=== PATIENT | male | born 1960 | race Caucasian/White ===

== ENCOUNTER 2020-05-24 17:09 | Inpatient (IN) ==
[2020-05-24] MEDS ORDERED: NS 0.9% 1000 ml BAG 1,000 ML IV ONE ×2 (17:25→18:05)
[2020-05-24 17:52] LABS: Activated Partial Thrombo Time 24.8 seconds (26.0-38.0); INR 1.05 (0.82-1.09)
[2020-05-24 17:56] LABS: ABS Lymphocytes 0.6 10^3/ul (1.0-4.8); ABS Monocytes 0.4 10^3/ul (0-0.8); ABS Neutrophils 2.8 10^3/ul (1.5-7.7); Eosinophil % 1.1 %; Hematocrit 38 % (42-52); Hemoglobin 13.4 g/dL (14.0-18.0); Lymphocyte % 15.3 %; Mean Corpuscular HGB Conc 35 g/dL (31-36); Mean Corpuscular Hemoglobin 39 pg (27-31); Mean Corpuscular Volume 111 fL (80-94); Mean Platelet Volume 8.4 fL (7.4-10.4); Nucleated Red Blood Cells % 0.1; Platelet Count 147 10^3/uL (150-450); Red Blood Count 3.41 10^6 /uL (4.18-5.48); Red Cell Distribution Width 17 % (10-15); White Blood Count 3.8 10^3/uL (3.5-10.8)
[2020-05-24 18:07] LABS: ALT 96 U/L (7-52); AST 112 U/L (13-39); Albumin 3.9 g/dL (3.2-5.2); Alkaline Phosphatase 42 U/L (34-104); Anion Gap 11 mmol/L (2-11); BUN/Creatinine Ratio 15.9 (8-20); Blood Urea Nitrogen 22 mg/dL (6-24); CO2 Carbon Dioxide 24 mmol/L (22-32); Calcium 9.4 mg/dL (8.6-10.3); Chloride 100 mmol/L (101-111); Cholesterol 155 mg/dL; EGFR African American 63.2 (>60); EGFR Non-African American 52.2 (>60); Glucose 99 mg/dL (70-100); HDL Cholesterol 35.1 mg/dL; LDL Cholesterol 97 mg/dL; Potassium 3.3 mmol/L (3.5-5.0); Sodium 135 mmol/L (135-145); Triglycerides 114 mg/dL
[2020-05-24] MEDS ORDERED: Iodixanol (CONTRAST) 320 MG/ML 100 ML SDV IV ONE (18:12)
[2020-05-24 18:57] LABS: Albumin/Globulin Ratio 1.2 (1-3); Globulin 3.2 g/dL (2-4); Total Protein 7.1 g/dL (6.4-8.9)
[2020-05-24 20:36] LABS: Urine Appearance Clear; Urine Bilirubin Negative (Negative); Urine Blood Negative (Negative); Urine Color Yellow; Urine Glucose Negative (Negative); Urine Ketones Trace (Negative); Urine Nitrite Negative (Negative); Urine Protein Negative (Negative); Urine Specific Gravity 1.043 (1.010-1.030); Urine Urobilinogen Negative (Negative)
[2020-05-24] MEDS ORDERED: Ondansetron 4 mg VIAL 2 MG/ML 2 ml VIAL IV PRN (20:49)
[2020-05-24] MEDS ORDERED: Potassium Chlor 20 meq TAB.ER PO ONE (21:00)
[2020-05-24] MEDS ORDERED: Albuterol 2.5mg/3 ml (0.083%) NEB.SOLN INH PRN (21:27)
[2020-05-24] MEDS ORDERED: NS 0.9% 1000 ml BAG 1,000 ML IV SCH (21:30)
[2020-05-24 21:50] LABS: Alcohol, S < 10 mg/dL (<10)
[2020-05-24 21:55] LABS: Magnesium 1.5 mg/dL (1.9-2.7)
[2020-05-24 22:16] LABS: Vitamin B12 613 pg/mL (180-914)
[2020-05-25] MEDS ORDERED: Magnesium Sulfate 2 gm BAG 2 GM/50 ML BAG IVPB ONE (00:40)
[2020-05-25] MEDS: Nystatin TOP POWDER 15 GM BTL TOPICAL SCH ×3 (02:15→13:36)
[2020-05-25 06:05] LABS: ABS Basophils 0.1 10^3/ul (0-0.2); ABS Eosinophils 0.1 10^3/ul (0-0.6); ABS Lymphocytes 0.6 10^3/ul (1.0-4.8); ABS Monocytes 0.3 10^3/ul (0-0.8); ABS Neutrophils 2.3 10^3/ul (1.5-7.7); Eosinophil % 2.2 %; Hematocrit 35 % (42-52); Hemoglobin 12.4 g/dL (14.0-18.0); Lymphocyte % 19.4 %; Mean Corpuscular HGB Conc 35 g/dL (31-36); Mean Corpuscular Hemoglobin 39 pg (27-31); Mean Corpuscular Volume 111 fL (80-94); Mean Platelet Volume 7.6 fL (7.4-10.4); Nucleated Red Blood Cells % 0.2; Platelet Count 138 10^3/uL (150-450); Red Blood Count 3.19 10^6 /uL (4.18-5.48); Red Cell Distribution Width 16 % (10-15); White Blood Count 3.3 10^3/uL (3.5-10.8)
[2020-05-25 06:19] LABS: Albumin 3.6 g/dL (3.2-5.2); Albumin/Globulin Ratio 1.2 (1-3); Calcium 8.7 mg/dL (8.6-10.3); EGFR African American 83.8 (>60); EGFR Non-African American 69.3 (>60); Globulin 3.1 g/dL (2-4); HDL Cholesterol 32.6 mg/dL; Indirect Bilirubin 0.6 mg/dL (0.3-1.0); Potassium 3.9 mmol/L (3.5-5.0); Total Protein 6.7 g/dL (6.4-8.9)
[2020-05-25 07:19] LABS: INR 1.1 (0.82-1.09)
[2020-05-25] MEDS ORDERED: Perflutren Lipid Microsphere 3 ML VIAL ONE (08:43)
[2020-05-25 12:23] VITALS: BP 116/68
[2020-05-25 14:18] LABS: Folate 6.73 ng/mL (>3.99)
== END 2020-05-25 15:45 | disposition home health service (06) | DRG 45 ==
LOC: ED 17:09 → MEDTELE 21:24
PROVIDERS: ADMIT Nurse Practitioner Family; ATTEND Internal Medicine

== ENCOUNTER 2020-09-15 23:14 | Inpatient (IN) ==
[2020-09-15] MEDS ORDERED: Lorazepam PYXIS KEY ONE (23:22)
[2020-09-15] MEDS ORDERED: NS 0.9% 1000 ml BAG 1,000 ML IV ONE (23:23)
[2020-09-15] MEDS ORDERED: LORazepam 2 mg VIAL 1 ml ONE (23:23)
[2020-09-15] MEDS ORDERED: levETIRAcetam 1000MG IVPREMIX 1,000 MG/100 ML BAG IVPB ONE (23:24)
[2020-09-15] MEDS ORDERED: Prothrombin Complex Conc. DOSE = Units Factor IX (nine) IV SLOW PU ONE (23:26)
[2020-09-15 23:40] LABS: ABS Lymphocytes 1.1 10^3/ul (1.0-4.8); ABS Monocytes 0.6 10^3/ul (0-0.8); ABS Neutrophils 9.5 10^3/ul (1.5-7.7); Hematocrit 25 % (42-52); Hemoglobin 8.3 g/dL (14.0-18.0); Lymphocyte % 10.2 %; Mean Corpuscular HGB Conc 34 g/dL (31-36); Mean Corpuscular Hemoglobin 37 pg (27-31); Mean Corpuscular Volume 109 fL (80-94); Mean Platelet Volume 8.1 fL (7.4-10.4); Nucleated Red Blood Cells % 0.2; Platelet Count 176 10^3/uL (150-450); Red Blood Count 2.28 10^6 /uL (4.18-5.48); Red Cell Distribution Width 17 % (10-15); White Blood Count 11.3 10^3/uL (3.5-10.8)
[2020-09-15 23:46] LABS: INR 1.19 (0.82-1.09)
[2020-09-15 23:54] LABS: ALT 17 U/L (7-52); AST 21 U/L (13-39); Albumin 3.1 g/dL (3.2-5.2); Albumin/Globulin Ratio 1.5 (1-3); Alkaline Phosphatase 27 U/L (34-104); Anion Gap 16 mmol/L (2-11); BUN/Creatinine Ratio 32.2 (8-20); Blood Urea Nitrogen 47 mg/dL (6-24); CO2 Carbon Dioxide 18 mmol/L (22-32); Calcium 8.7 mg/dL (8.6-10.3); Chloride 98 mmol/L (101-111); EGFR African American 59.2 (>60); EGFR Non-African American 48.9 (>60); Globulin 2.1 g/dL (2-4); Glucose 205 mg/dL (70-100); Potassium 4.5 mmol/L (3.5-5.0); Sodium 132 mmol/L (135-145); Total Protein 5.2 g/dL (6.4-8.9)
[2020-09-15] MEDS ORDERED: LORazepam 2 mg VIAL 1 ml IV PUSH ONE (23:54)
[2020-09-15] MEDS ORDERED: Lorazepam PYXIS KEY PRN (23:54)
[2020-09-16] MEDS ORDERED: Digoxin IV 0.5 MG/2 ML AMP (0.25 MG/ML) IV SLOW PU ONE (00:28)
[2020-09-16] MEDS ORDERED: Pantoprazole 80 mg in NS BAG 80 MG/250 ML BAG IV ONE ×2 (00:54→00:56)
[2020-09-16] MEDS ORDERED: Pantoprazole 80 mg in NS BAG 80 MG/250 ML BAG IV SCH (01:00)
[2020-09-16] MEDS ORDERED: Pantoprazole VIAL 40 MG VIAL IV ONE (01:05)
[2020-09-16] MEDS ORDERED: CALCIUM GLUCONATE 1GM/50ML NS 1 GM/50 ML BAG IV ONE (01:16)
[2020-09-16 01:18] LABS: Troponin I 0.01 ng/mL (<0.03)
[2020-09-16] MEDS: CALCIUM GLUCONATE 1GM/50ML NS 1 GM/50 ML BAG IV ONE ×2 (01:34→01:43)
[2020-09-16] MEDS: Pantoprazole 80 mg in NS BAG 80 MG/250 ML BAG IV SCH ×3 (01:40→20:48)
[2020-09-16] MEDS ORDERED: Lactated Ringers 1000 ml BAG 1,000 ML IV SCH ×2 (02:00→18:00)
[2020-09-16] MEDS ORDERED: Diltiazem (ADVAN VIAL) 100 MG/100 ML ADDV.BAG IV SCH (02:00)
[2020-09-16] MEDS ORDERED: Thiamine 100 MG/ML 2 ml VIAL (200 mg) IM ONE (02:18)
[2020-09-16] MEDS ORDERED: Lorazepam PYXIS KEY PRN ×2 (02:25→07:08)
[2020-09-16 02:29] LABS: Alcohol, S < 10 mg/dL (<10)
[2020-09-16 02:47] LABS: Hematocrit 24 % (42-52); Hemoglobin 8.4 g/dL (14.0-18.0)
[2020-09-16] MEDS ORDERED: LORazepam 2 mg VIAL 1 ml IV PUSH SCH (03:15)
[2020-09-16 03:22] LABS: Urine Appearance Clear; Urine Bilirubin Negative (Negative); Urine Blood Negative (Negative); Urine Color Yellow; Urine Glucose 1+(50 mg/dL) (Negative); Urine Ketones Negative (Negative); Urine Nitrite Negative (Negative); Urine Protein Negative (Negative); Urine Specific Gravity 1.015 (1.010-1.030); Urine Urobilinogen Negative (Negative)
[2020-09-16 03:32] LABS: Urine Benzodiazepine Screen None Detected (None Detect); Urine Cannabinoids Screen None Detected (None Detect); Urine Opiates Screen Presumptive Positive (None Detect)
[2020-09-16 03:37] LABS: Troponin I 0.01 ng/mL (<0.03)
[2020-09-16] MEDS ORDERED: Metoprolol Tartrate 5 mg VIAL 5 ml VIAL (1 mg/ml) IV PRN (03:49)
[2020-09-16] MEDS: Multivitamins/Minerals TAB PO SCH ×2 (03:49→08:32)
[2020-09-16] MEDS ORDERED: Dexmedetomidine 1,000 MCG in NS 0.9% 250 ml 240 ML IV SCH (05:00)
[2020-09-16] MEDS: LORazepam 2 mg VIAL 1 ml IV PUSH SCH ×2 (05:52→09:20)
[2020-09-16 06:03] LABS: Hematocrit 22 % (42-52); Hemoglobin 7.7 g/dL (14.0-18.0)
[2020-09-16 06:13] LABS: Albumin 2.6 g/dL (3.2-5.2); Albumin/Globulin Ratio 1.5 (1-3); BUN/Creatinine Ratio 34.6 (8-20); Calcium 7.5 mg/dL (8.6-10.3); EGFR African American 84.7 (>60); Globulin 1.7 g/dL (2-4); Potassium 4.1 mmol/L (3.5-5.0); Total Bilirubin 0.7 mg/dL (0.2-1.0); Total Protein 4.3 g/dL (6.4-8.9)
[2020-09-16 06:23] LABS: Troponin I 0.01 ng/mL (<0.03)
[2020-09-16] MEDS ORDERED: LORazepam 2 mg VIAL 1 ml IV PUSH ONE (07:08)
[2020-09-16] MEDS ORDERED: Lorazepam PYXIS KEY ONE (07:09)
[2020-09-16] MEDS ORDERED: LORazepam 2 mg VIAL 1 ml ONE (07:09)
[2020-09-16] MEDS ORDERED: Succinylcholine 200 mg VIAL 20 mg/ml 10 ml VIAL (200 mg) ONE (07:33)
[2020-09-16] MEDS ORDERED: Propofol 10 MG/ML 20 ML BTL ONE (07:39)
[2020-09-16] MEDS ORDERED: Propofol 10 mg/ml 100 ML BTL 100 ML IV SCH (08:00)
[2020-09-16] MEDS: Propofol* 20 ML VIAL - FOR IV LINE PRIMING ONLY SCH ×2 (08:32→21:24)
[2020-09-16 09:05] LABS: Urine Appearance Clear; Urine Bilirubin Negative (Negative); Urine Blood 1+ (Negative); Urine Color Yellow; Urine Glucose 1+(50 mg/dL) (Negative); Urine Ketones Negative (Negative); Urine Nitrite Negative (Negative); Urine Protein Negative (Negative); Urine Specific Gravity 1.015 (1.010-1.030); Urine Urobilinogen Negative (Negative)
[2020-09-16 09:09] LABS: Urine Bacteria Absent (Absent); Urine Red Blood Cell Trace(0-2/hpf) (Absent); Urine White Blood Cell Trace(0-5/hpf) (Absent)
[2020-09-16] MEDS: levETIRAcetam 1000MG IVPREMIX 1,000 MG/100 ML BAG IVPB SCH ×2 (09:41→21:26)
[2020-09-16] MEDS: Midazolam 50 MG VIAL IV DRIP 50 ML IV SCH ×2 (09:43→16:25)
[2020-09-16 10:13] LABS: Magnesium 1.6 mg/dL (1.9-2.7); Phosphorus 1.8 mg/dL (2.5-5.0)
[2020-09-16] MEDS ORDERED: Midazolam 5 mg/5 ml VIAL 1 mg/ml 5 ml VIAL (5 mg) ONE (10:37)
[2020-09-16] MEDS ORDERED: Midazolam 5 mg/5 ml VIAL 1 mg/ml 5 ml VIAL (5 mg) IV SLOW PU ONE (10:45)
[2020-09-16 17:07] LABS: Hematocrit 23 % (42-52); Hemoglobin 7.7 g/dL (14.0-18.0)
[2020-09-16] MEDS ORDERED: fentaNYL 250 mcg/5 ml 50 MCG/ML 5 ml VIAL (250 MCG) ONE (19:35)
[2020-09-16] MEDS ORDERED: fentaNYL 100 mcg/2 ml 50 MCG/ML VIAL IV SLOW PU ONE (22:00)
[2020-09-16] MEDS: Chlorhexidine MOUTHWASH 0.12% 15 ML UDC TOPICAL SCH (23:56)
[2020-09-17] MEDS: Midazolam 50 MG VIAL IV DRIP 50 ML IV SCH ×3 (00:04→14:54)
[2020-09-17] MEDS: Lactated Ringers 1000 ml BAG 1,000 ML IV SCH ×3 (01:55→20:48)
[2020-09-17] MEDS ORDERED: Piperacillin/Tazobac ADVAN 3.375 GM in NS 0.9% 100 ml BAG 100 ML IV ONE (01:56)
[2020-09-17] MEDS ORDERED: Zosyn per Pharmacy NOTE FOLLOW UP SCH (02:00)
[2020-09-17] MEDS ORDERED: Norepinephrine 16MCG/ML IVPRE 4,000 MCG/250 ML BAG IV ONE (03:39)
[2020-09-17] MEDS: Norepinephrine 16MCG/ML IVPRE 4,000 MCG/250 ML BAG IV SCH ×2 (03:40→10:12)
[2020-09-17] MEDS: Chlorhexidine MOUTHWASH 0.12% 15 ML UDC TOPICAL SCH ×5 (04:31→20:49)
[2020-09-17 05:24] LABS: ABS Eosinophils 0.1 10^3/ul (0-0.6); ABS Lymphocytes 0.4 10^3/ul (1.0-4.8); ABS Monocytes 0.2 10^3/ul (0-0.8); ABS Neutrophils 5.7 10^3/ul (1.5-7.7); Eosinophil % 0.9 %; Hematocrit 23 % (42-52); Hemoglobin 7.6 g/dL (14.0-18.0); Lymphocyte % 6.7 %; Mean Corpuscular HGB Conc 34 g/dL (31-36); Mean Corpuscular Hemoglobin 35 pg (27-31); Mean Corpuscular Volume 103 fL (80-94); Mean Platelet Volume 8.7 fL (7.4-10.4); Platelet Count 96 10^3/uL (150-450); Red Blood Count 2.18 10^6 /uL (4.18-5.48); Red Cell Distribution Width 20 % (10-15); White Blood Count 6.4 10^3/uL (3.5-10.8)
[2020-09-17 05:30] LABS: ALT 12 U/L (7-52); Albumin 2.6 g/dL (3.2-5.2); Albumin/Globulin Ratio 1.4 (1-3); Alkaline Phosphatase 24 U/L (34-104); BUN/Creatinine Ratio 16.7 (8-20); Blood Urea Nitrogen 17 mg/dL (6-24); CO2 Carbon Dioxide 22 mmol/L (22-32); Calcium 7.3 mg/dL (8.6-10.3); Chloride 107 mmol/L (101-111); EGFR African American 89.5 (>60); Globulin 1.9 g/dL (2-4); Glucose 101 mg/dL (70-100); Magnesium 1.5 mg/dL (1.9-2.7); Phosphorus 1.9 mg/dL (2.5-5.0); Sodium 133 mmol/L (135-145); Total Protein 4.5 g/dL (6.4-8.9)
[2020-09-17 05:31] LABS: Anion Gap 4 mmol/L (2-11)
[2020-09-17] MEDS: ZOSYN 3.375 GM Q8H per EXTENDED INFUSION IV SCH ×3 (05:35→22:14)
[2020-09-17] MEDS: Multivitamins/Minerals TAB PO SCH (07:43)
[2020-09-17] MEDS: levETIRAcetam 1000MG IVPREMIX 1,000 MG/100 ML BAG IVPB SCH ×2 (07:54→20:49)
[2020-09-17] MEDS ORDERED: Magnesium Sulf 4 GM/100 ML IV 4,000 MG/100 ML BAG IVPB ONE (09:34)
[2020-09-17] MEDS ORDERED: Lorazepam PYXIS KEY ONE ×2 (09:36→11:46)
[2020-09-17] MEDS ORDERED: LORazepam 2 mg VIAL 1 ml ONE ×2 (09:37→11:46)
[2020-09-17] MEDS ORDERED: Metoprolol Tartrate 5 mg VIAL 5 ml VIAL (1 mg/ml) IV PRN (10:51)
[2020-09-17] MEDS ORDERED: Lorazepam PYXIS KEY PRN (11:07)
[2020-09-17] MEDS ORDERED: LORazepam 2 mg VIAL 1 ml IV PUSH ONE (12:00)
[2020-09-17] MEDS: Pantoprazole 80 mg in NS BAG 80 MG/250 ML BAG IV SCH ×2 (13:33→23:15)
[2020-09-17] MEDS: Dexmedetomidine 1,000 MCG in NS 0.9% 250 ml 240 ML IV SCH (15:31)
[2020-09-18] MEDS: Chlorhexidine MOUTHWASH 0.12% 15 ML UDC TOPICAL SCH ×7 (00:21→23:49)
[2020-09-18] MEDS: Midazolam 50 MG VIAL IV DRIP 50 ML IV SCH ×2 (01:12→23:15)
[2020-09-18] MEDS ORDERED: fentaNYL 100 mcg/2 ml 50 MCG/ML VIAL IV SLOW PU ONE (02:40)
[2020-09-18] MEDS ORDERED: fentaNYL 250 mcg/5 ml 50 MCG/ML 5 ml VIAL (250 MCG) ONE (02:41)
[2020-09-18] MEDS: Lactated Ringers 1000 ml BAG 1,000 ML IV SCH (03:39)
[2020-09-18 04:22] LABS: ABS Eosinophils 0.1 10^3/ul (0-0.6); ABS Lymphocytes 0.2 10^3/ul (1.0-4.8); ABS Monocytes 0.1 10^3/ul (0-0.8); ABS Neutrophils 2.7 10^3/ul (1.5-7.7); Eosinophil % 1.7 %; Hematocrit 19 % (42-52); Hemoglobin 6.6 g/dL (14.0-18.0); Lymphocyte % 7.2 %; Mean Corpuscular HGB Conc 35 g/dL (31-36); Mean Corpuscular Hemoglobin 36 pg (27-31); Mean Corpuscular Volume 103 fL (80-94); Mean Platelet Volume 7.3 fL (7.4-10.4); Nucleated Red Blood Cells % 0.1; Platelet Count 85 10^3/uL (150-450); Red Blood Count 1.85 10^6 /uL (4.18-5.48); Red Cell Distribution Width 20 % (10-15); White Blood Count 3.1 10^3/uL (3.5-10.8)
[2020-09-18 04:40] LABS: BUN/Creatinine Ratio 11.2 (8-20); Calcium 6.8 mg/dL (8.6-10.3); EGFR African American 93.8 (>60); EGFR Non-African American 77.5 (>60); Potassium 3.4 mmol/L (3.5-5.0)
[2020-09-18] MEDS: ZOSYN 3.375 GM Q8H per EXTENDED INFUSION IV SCH ×3 (05:35→21:55)
[2020-09-18] MEDS: Pantoprazole 80 mg in NS BAG 80 MG/250 ML BAG IV SCH ×5 (05:44→23:51)
[2020-09-18] MEDS ORDERED: KCL 20 MEQ/100 ML IVPREMIX 20 MEQ/100 ML BAG IV ONE (05:55)
[2020-09-18] MEDS: Dexmedetomidine 1,000 MCG in NS 0.9% 250 ml 240 ML IV SCH ×2 (07:45→23:45)
[2020-09-18] MEDS: levETIRAcetam 1000MG IVPREMIX 1,000 MG/100 ML BAG IVPB SCH ×2 (07:48→19:13)
[2020-09-18] MEDS: Multivitamins/Minerals TAB PO SCH (09:13)
[2020-09-18 15:10] LABS: Hematocrit 24 % (42-52); Hemoglobin 8.2 g/dL (14.0-18.0)
[2020-09-18] MEDS: Norepinephrine 16MCG/ML IVPRE 4,000 MCG/250 ML BAG IV SCH (20:04)
[2020-09-19] MEDS: Midazolam 50 MG VIAL IV DRIP 50 ML IV SCH (03:10)
[2020-09-19] MEDS: Chlorhexidine MOUTHWASH 0.12% 15 ML UDC TOPICAL SCH ×6 (03:50→23:49)
[2020-09-19 03:58] LABS: ABS Eosinophils 0.1 10^3/ul (0-0.6); ABS Lymphocytes 0.5 10^3/ul (1.0-4.8); ABS Monocytes 0.3 10^3/ul (0-0.8); ABS Neutrophils 3.8 10^3/ul (1.5-7.7); Eosinophil % 1.3 %; Hematocrit 25 % (42-52); Hemoglobin 8.4 g/dL (14.0-18.0); Lymphocyte % 9.8 %; Mean Corpuscular HGB Conc 34 g/dL (31-36); Mean Corpuscular Hemoglobin 34 pg (27-31); Mean Corpuscular Volume 102 fL (80-94); Mean Platelet Volume 7.6 fL (7.4-10.4); Nucleated Red Blood Cells % 0.2; Platelet Count 124 10^3/uL (150-450); Red Blood Count 2.46 10^6 /uL (4.18-5.48); Red Cell Distribution Width 20 % (10-15); White Blood Count 4.6 10^3/uL (3.5-10.8)
[2020-09-19 04:14] LABS: BUN/Creatinine Ratio 9.7 (8-20); Calcium 7.2 mg/dL (8.6-10.3); EGFR African American 99.6 (>60); EGFR Non-African American 82.3 (>60); Magnesium 1.9 mg/dL (1.9-2.7); Phosphorus 1.7 mg/dL (2.5-5.0); Potassium 3.8 mmol/L (3.5-5.0)
[2020-09-19] MEDS: Norepinephrine 16MCG/ML IVPRE 4,000 MCG/250 ML BAG IV SCH ×3 (04:20→23:52)
[2020-09-19] MEDS: Pantoprazole 80 mg in NS BAG 80 MG/250 ML BAG IV SCH (05:08)
[2020-09-19] MEDS: ZOSYN 3.375 GM Q8H per EXTENDED INFUSION IV SCH ×3 (05:20→22:21)
[2020-09-19] MEDS ORDERED: Magnesium Sulfate 2 gm BAG 2 GM/50 ML BAG IVPB ONE (05:28)
[2020-09-19] MEDS ORDERED: Potassium Phosphate IV 15 MMOLE in NS 0.9% 250 ml 250 ML IVPB ONE (08:00)
[2020-09-19] MEDS: levETIRAcetam 1000MG IVPREMIX 1,000 MG/100 ML BAG IVPB SCH ×2 (08:12→19:09)
[2020-09-19] MEDS: Multivitamins/Minerals TAB PO SCH (08:12)
[2020-09-19] MEDS ORDERED: Thiamine 100 MG/ML 2 ml VIAL (200 mg) IV SCH (09:00)
[2020-09-19] MEDS: Pantoprazole VIAL 40 MG VIAL IV SCH ×2 (09:27→22:21)
[2020-09-19] MEDS: Thiamine IV 100 MG in NS 0.9% 50 ML Q24H IV SCH (09:32)
[2020-09-19] MEDS ORDERED: Succinylcholine 200 mg VIAL 20 mg/ml 10 ml VIAL (200 mg) ONE (16:11)
[2020-09-19] MEDS ORDERED: Midazolam 10 mg/10 ml VIAL 1 mg/ml 10 ml VIAL (10 mg) ONE (16:27)
[2020-09-19] MEDS ORDERED: Etomidate 40 mg/20 ml (2 MG/ML) 20 ml VIAL (40 mg) ONE (16:27)
[2020-09-19] MEDS ORDERED: Propofol 10 mg/ml 100 ML BTL 100 ML ONE (16:39)
[2020-09-19] MEDS ORDERED: Saline FLUSH-CENTRAL 10 ML SYRINGE CENT\\PICC SCH (18:00)
[2020-09-19] MEDS: Linezolid 600 MG IVPREMIX(*) 600 MG/300 ML BAG IVPB SCH (18:29)
[2020-09-19] MEDS: Propofol 10 mg/ml 100 ML BTL 100 ML IV SCH (21:33)
[2020-09-20] MEDS: Chlorhexidine MOUTHWASH 0.12% 15 ML UDC TOPICAL SCH ×5 (04:12→20:26)
[2020-09-20] MEDS: Linezolid 600 MG IVPREMIX(*) 600 MG/300 ML BAG IVPB SCH ×2 (06:02→18:08)
[2020-09-20 06:19] LABS: ABS Eosinophils 0.1 10^3/ul (0-0.6); ABS Lymphocytes 0.4 10^3/ul (1.0-4.8); ABS Monocytes 0.4 10^3/ul (0-0.8); ABS Neutrophils 2.8 10^3/ul (1.5-7.7); Eosinophil % 2.2 %; Hematocrit 23 % (42-52); Hemoglobin 7.9 g/dL (14.0-18.0); Lymphocyte % 11.2 %; Mean Corpuscular HGB Conc 35 g/dL (31-36); Mean Corpuscular Hemoglobin 35 pg (27-31); Mean Corpuscular Volume 100 fL (80-94); Mean Platelet Volume 7.3 fL (7.4-10.4); Nucleated Red Blood Cells % 0.4; Platelet Count 139 10^3/uL (150-450); Red Blood Count 2.27 10^6 /uL (4.18-5.48); Red Cell Distribution Width 20 % (10-15); White Blood Count 3.7 10^3/uL (3.5-10.8)
[2020-09-20 06:36] LABS: Albumin 2.3 g/dL (3.2-5.2); Albumin/Globulin Ratio 0.9 (1-3); BUN/Creatinine Ratio 5.6 (8-20); EGFR African American 104.8 (>60); EGFR Non-African American 86.6 (>60); Globulin 2.5 g/dL (2-4); Magnesium 1.9 mg/dL (1.9-2.7); Phosphorus 1.6 mg/dL (2.5-5.0); Potassium 3.4 mmol/L (3.5-5.0); Total Bilirubin 0.6 mg/dL (0.2-1.0); Total Protein 4.8 g/dL (6.4-8.9)
[2020-09-20] MEDS: ZOSYN 3.375 GM Q8H per EXTENDED INFUSION IV SCH ×3 (07:19→21:48)
[2020-09-20] MEDS: Multivitamins/Minerals TAB PO SCH (07:33)
[2020-09-20] MEDS: Pantoprazole VIAL 40 MG VIAL IV SCH ×2 (07:33→20:26)
[2020-09-20] MEDS: levETIRAcetam 1000MG IVPREMIX 1,000 MG/100 ML BAG IVPB SCH ×2 (07:33→20:26)
[2020-09-20] MEDS ORDERED: Potassium Phosphate IV 15 MMOLE in NS 0.9% 250 ml 250 ML IVPB ONE (07:38)
[2020-09-20] MEDS: Propofol 10 mg/ml 100 ML BTL 100 ML IV SCH ×3 (07:54→21:53)
[2020-09-20] MEDS: Thiamine IV 100 MG in NS 0.9% 50 ML Q24H IV SCH (08:56)
[2020-09-20] MEDS: KCL 20 MEQ/100 ML IVPREMIX 20 MEQ/100 ML BAG IV SCH ×2 (09:39→11:47)
[2020-09-20] MEDS: Norepinephrine 16MCG/ML IVPRE 4,000 MCG/250 ML BAG IV SCH (21:53)
[2020-09-21] MEDS: Chlorhexidine MOUTHWASH 0.12% 15 ML UDC TOPICAL SCH ×6 (00:18→19:25)
[2020-09-21] MEDS: Propofol 10 mg/ml 100 ML BTL 100 ML IV SCH ×4 (04:00→22:26)
[2020-09-21 04:26] LABS: ABS Eosinophils 0.1 10^3/ul (0-0.6); ABS Lymphocytes 0.3 10^3/ul (1.0-4.8); ABS Monocytes 0.2 10^3/ul (0-0.8); ABS Neutrophils 1.7 10^3/ul (1.5-7.7); Eosinophil % 2.9 %; Hematocrit 23 % (42-52); Hemoglobin 8.3 g/dL (14.0-18.0); Lymphocyte % 14.4 %; Mean Corpuscular HGB Conc 36 g/dL (31-36); Mean Corpuscular Hemoglobin 36 pg (27-31); Mean Corpuscular Volume 100 fL (80-94); Mean Platelet Volume 7.7 fL (7.4-10.4); Nucleated Red Blood Cells % 0.8; Platelet Count 150 10^3/uL (150-450); Red Blood Count 2.34 10^6 /uL (4.18-5.48); Red Cell Distribution Width 20 % (10-15); White Blood Count 2.4 10^3/uL (3.5-10.8)
[2020-09-21 04:41] LABS: Albumin 2.4 g/dL (3.2-5.2); Albumin/Globulin Ratio 0.9 (1-3); BUN/Creatinine Ratio 4.6 (8-20); Calcium 7.1 mg/dL (8.6-10.3); EGFR African American 107.6 (>60); EGFR Non-African American 88.9 (>60); Globulin 2.6 g/dL (2-4); Magnesium 1.7 mg/dL (1.9-2.7); Phosphorus 1.9 mg/dL (2.5-5.0); Potassium 4.2 mmol/L (3.5-5.0); Total Bilirubin 0.5 mg/dL (0.2-1.0)
[2020-09-21] MEDS: Linezolid 600 MG IVPREMIX(*) 600 MG/300 ML BAG IVPB SCH (05:18)
[2020-09-21] MEDS: ZOSYN 3.375 GM Q8H per EXTENDED INFUSION IV SCH ×3 (06:24→22:11)
[2020-09-21] MEDS ORDERED: Potassium Phosphate IV 15 MMOLE in NS 0.9% 250 ml 250 ML IVPB ONE (07:31)
[2020-09-21] MEDS ORDERED: Magnesium Sulfate 2 gm BAG 2 GM/50 ML BAG IVPB ONE (07:31)
[2020-09-21] MEDS ORDERED: Cyanocobalamin INJ 1,000 MCG/ML VIAL 1 ML VIAL IM ONE (07:49)
[2020-09-21] MEDS: levETIRAcetam 1000MG IVPREMIX 1,000 MG/100 ML BAG IVPB SCH ×2 (08:14→19:25)
[2020-09-21] MEDS: Multivitamins/Minerals TAB PO SCH (08:14)
[2020-09-21] MEDS: Pantoprazole VIAL 40 MG VIAL IV SCH ×2 (08:15→21:21)
[2020-09-21] MEDS: Thiamine IV 100 MG in NS 0.9% 50 ML Q24H IV SCH (09:29)
[2020-09-21] MEDS ORDERED: Furosemide 20 mg/2 ml IV VIAL IV ONE (10:16)
[2020-09-22] MEDS: Chlorhexidine MOUTHWASH 0.12% 15 ML UDC TOPICAL SCH ×6 (01:56→19:31)
[2020-09-22] MEDS: Propofol 10 mg/ml 100 ML BTL 100 ML IV SCH ×3 (02:58→14:50)
[2020-09-22 04:17] LABS: ABS Eosinophils 0.1 10^3/ul (0-0.6); ABS Lymphocytes 0.4 10^3/ul (1.0-4.8); ABS Monocytes 0.3 10^3/ul (0-0.8); Eosinophil % 2.1 %; Hematocrit 23 % (42-52); Hemoglobin 7.9 g/dL (14.0-18.0); Lymphocyte % 12.9 %; Mean Corpuscular HGB Conc 34 g/dL (31-36); Mean Corpuscular Hemoglobin 35 pg (27-31); Mean Corpuscular Volume 101 fL (80-94); Mean Platelet Volume 7.5 fL (7.4-10.4); Nucleated Red Blood Cells % 0.3; Platelet Count 175 10^3/uL (150-450); Red Blood Count 2.29 10^6 /uL (4.18-5.48); Red Cell Distribution Width 20 % (10-15); White Blood Count 2.8 10^3/uL (3.5-10.8)
[2020-09-22 04:27] LABS: Albumin 2.5 g/dL (3.2-5.2); Calcium 7.7 mg/dL (8.6-10.3); Magnesium 1.9 mg/dL (1.9-2.7); Potassium 4.2 mmol/L (3.5-5.0); Total Bilirubin 0.4 mg/dL (0.2-1.0)
[2020-09-22 04:33] LABS: BUN/Creatinine Ratio 8.1 (8-20); EGFR Non-African American 90.1 (>60); Globulin 2.5 g/dL (2-4); Phosphorus 2.7 mg/dL (2.5-5.0)
[2020-09-22] MEDS: ZOSYN 3.375 GM Q8H per EXTENDED INFUSION IV SCH ×3 (05:38→22:01)
[2020-09-22] MEDS ORDERED: Furosemide 20 mg/2 ml IV VIAL IV ONE (07:44)
[2020-09-22] MEDS: levETIRAcetam 1000MG IVPREMIX 1,000 MG/100 ML BAG IVPB SCH ×2 (07:50→19:31)
[2020-09-22] MEDS: Multivitamins/Minerals TAB PO SCH (08:23)
[2020-09-22] MEDS: Pantoprazole VIAL 40 MG VIAL IV SCH ×2 (08:23→19:34)
[2020-09-22] MEDS ORDERED: NS 0.9% 50 ML 50 ML ONE (08:48)
[2020-09-22] MEDS: Thiamine IV 100 MG in NS 0.9% 50 ML Q24H IV SCH (10:28)
[2020-09-22 10:29] LABS: Myoglobin 31.1 ng/mL (17.4-105.7)
[2020-09-23] MEDS: Chlorhexidine MOUTHWASH 0.12% 15 ML UDC TOPICAL SCH ×6 (00:20→19:59)
[2020-09-23] MEDS: Propofol 10 mg/ml 100 ML BTL 100 ML IV SCH (03:14)
[2020-09-23 05:06] LABS: ABS Eosinophils 0.1 10^3/ul (0-0.6); ABS Lymphocytes 0.4 10^3/ul (1.0-4.8); ABS Monocytes 0.3 10^3/ul (0-0.8); ABS Neutrophils 2.8 10^3/ul (1.5-7.7); Eosinophil % 1.6 %; Hematocrit 23 % (42-52); Hemoglobin 7.8 g/dL (14.0-18.0); Lymphocyte % 10.1 %; Mean Corpuscular HGB Conc 35 g/dL (31-36); Mean Corpuscular Hemoglobin 35 pg (27-31); Mean Corpuscular Volume 101 fL (80-94); Mean Platelet Volume 7.7 fL (7.4-10.4); Nucleated Red Blood Cells % 0.1; Platelet Count 190 10^3/uL (150-450); Red Blood Count 2.24 10^6 /uL (4.18-5.48); Red Cell Distribution Width 20 % (10-15); White Blood Count 3.5 10^3/uL (3.5-10.8)
[2020-09-23] MEDS: ZOSYN 3.375 GM Q8H per EXTENDED INFUSION IV SCH ×3 (06:33→23:05)
[2020-09-23] MEDS: Multivitamins/Minerals TAB PO SCH (07:45)
[2020-09-23] MEDS: levETIRAcetam 1000MG IVPREMIX 1,000 MG/100 ML BAG IVPB SCH ×2 (07:45→20:44)
[2020-09-23] MEDS: Pantoprazole VIAL 40 MG VIAL IV SCH ×2 (07:45→20:45)
[2020-09-23] MEDS: Thiamine IV 100 MG in NS 0.9% 50 ML Q24H IV SCH (09:00)
[2020-09-23] MEDS ORDERED: Amiodarone 150 mg IVPREMIX 150 MG/100 ML BAG IV ONE (09:49)
[2020-09-23] MEDS ORDERED: Amiodarone 360 MG IVPREMIX 360 MG/200 ML BAG IV ONE (13:02)
[2020-09-23] MEDS ORDERED: Acetaminophen IV 1 GM/100ML 100 ML IVPB ONE (13:13)
[2020-09-23] MEDS ORDERED: Acetaminophen IV 1 GM/100ML 100 ML ONE (13:21)
[2020-09-23] MEDS: Amiodarone 360 MG IVPREMIX 360 MG/200 ML BAG IV SCH (22:26)
[2020-09-24] MEDS: Chlorhexidine MOUTHWASH 0.12% 15 ML UDC TOPICAL SCH ×5 (02:04→16:08)
[2020-09-24] MEDS: ZOSYN 3.375 GM Q8H per EXTENDED INFUSION IV SCH ×3 (05:39→22:48)
[2020-09-24 06:09] LABS: ABS Eosinophils 0.1 10^3/ul (0-0.6); ABS Lymphocytes 0.5 10^3/ul (1.0-4.8); ABS Monocytes 0.3 10^3/ul (0-0.8); ABS Neutrophils 3.7 10^3/ul (1.5-7.7); Eosinophil % 2.4 %; Hematocrit 24 % (42-52); Hemoglobin 8.1 g/dL (14.0-18.0); Lymphocyte % 10.2 %; Mean Corpuscular HGB Conc 34 g/dL (31-36); Mean Corpuscular Hemoglobin 35 pg (27-31); Mean Corpuscular Volume 102 fL (80-94); Mean Platelet Volume 7.2 fL (7.4-10.4); Nucleated Red Blood Cells % 0.1; Platelet Count 195 10^3/uL (150-450); Red Blood Count 2.34 10^6 /uL (4.18-5.48); Red Cell Distribution Width 20 % (10-15); White Blood Count 4.6 10^3/uL (3.5-10.8)
[2020-09-24 06:30] LABS: Albumin 2.8 g/dL (3.2-5.2); Albumin/Globulin Ratio 0.8 (1-3); BUN/Creatinine Ratio 9.2 (8-20); Calcium 8.6 mg/dL (8.6-10.3); EGFR African American 93.8 (>60); EGFR Non-African American 77.5 (>60); Globulin 3.3 g/dL (2-4); Magnesium 1.7 mg/dL (1.9-2.7); Phosphorus 3.1 mg/dL (2.5-5.0); Total Bilirubin 0.6 mg/dL (0.2-1.0); Total Protein 6.1 g/dL (6.4-8.9)
[2020-09-24] MEDS ORDERED: Magnesium Sulfate 2 gm BAG 2 GM/50 ML BAG IVPB ONE (07:54)
[2020-09-24] MEDS: Amiodarone 360 MG IVPREMIX 360 MG/200 ML BAG IV SCH (08:27)
[2020-09-24] MEDS: levETIRAcetam 1000MG IVPREMIX 1,000 MG/100 ML BAG IVPB SCH ×2 (08:32→20:25)
[2020-09-24] MEDS: Thiamine IV 100 MG in NS 0.9% 50 ML Q24H IV SCH (09:18)
[2020-09-24] MEDS: Pantoprazole VIAL 40 MG VIAL IV SCH ×2 (09:19→20:56)
[2020-09-24] MEDS: Multivitamins/Minerals TAB PO SCH (10:29)
[2020-09-24 11:42] LABS: TSH Ultra Thyroid Stim Horm 3.47 mcIU/mL (0.34-5.60)
[2020-09-25] MEDS: ZOSYN 3.375 GM Q8H per EXTENDED INFUSION IV SCH ×2 (05:32→14:22)
[2020-09-25 05:45] LABS: ABS Eosinophils 0.1 10^3/ul (0-0.6); ABS Lymphocytes 0.6 10^3/ul (1.0-4.8); ABS Monocytes 0.3 10^3/ul (0-0.8); Eosinophil % 3.2 %; Hematocrit 24 % (42-52); Hemoglobin 8.2 g/dL (14.0-18.0); Lymphocyte % 14.2 %; Mean Corpuscular HGB Conc 34 g/dL (31-36); Mean Corpuscular Hemoglobin 34 pg (27-31); Mean Corpuscular Volume 101 fL (80-94); Mean Platelet Volume 7.1 fL (7.4-10.4); Nucleated Red Blood Cells % 0.2; Platelet Count 213 10^3/uL (150-450); Red Blood Count 2.39 10^6 /uL (4.18-5.48); Red Cell Distribution Width 20 % (10-15); White Blood Count 4.1 10^3/uL (3.5-10.8)
[2020-09-25 06:01] LABS: Albumin/Globulin Ratio 0.9 (1-3); BUN/Creatinine Ratio 9.8 (8-20); Calcium 8.6 mg/dL (8.6-10.3); EGFR African American 89.5 (>60); Globulin 3.2 g/dL (2-4); Potassium 3.7 mmol/L (3.5-5.0); Total Bilirubin 0.7 mg/dL (0.2-1.0); Total Protein 6.2 g/dL (6.4-8.9)
[2020-09-25] MEDS ORDERED: KCL 20 MEQ/100 ML IVPREMIX 20 MEQ/100 ML BAG IV ONE (07:44)
[2020-09-25] MEDS ORDERED: Saline FLUSH-CENTRAL 10 ML SYRINGE CENT\\PICC SCH (08:00)
[2020-09-25] MEDS ORDERED: NS 0.9% 50 ML 0 ML ONE (08:10)
[2020-09-25] MEDS ORDERED: NS 0.9% 50 ML 50 ML ONE (08:16)
[2020-09-25] MEDS: levETIRAcetam 1000MG IVPREMIX 1,000 MG/100 ML BAG IVPB SCH ×2 (08:20→22:07)
[2020-09-25] MEDS: Multivitamins/Minerals TAB PO SCH (08:20)
[2020-09-25] MEDS: Pantoprazole VIAL 40 MG VIAL IV SCH ×2 (10:52→20:08)
[2020-09-25] MEDS: Thiamine IV 100 MG in NS 0.9% 50 ML Q24H IV SCH (10:52)
[2020-09-25] MEDS: Nystatin TOP POWDER 15 GM BTL TOPICAL SCH (20:18)
[2020-09-26 06:44] LABS: ABS Eosinophils 0.1 10^3/ul (0-0.6); ABS Lymphocytes 0.7 10^3/ul (1.0-4.8); ABS Monocytes 0.4 10^3/ul (0-0.8); ABS Neutrophils 3.1 10^3/ul (1.5-7.7); Eosinophil % 3.3 %; Hematocrit 24 % (42-52); Hemoglobin 8.3 g/dL (14.0-18.0); Lymphocyte % 15.3 %; Mean Corpuscular HGB Conc 35 g/dL (31-36); Mean Corpuscular Hemoglobin 35 pg (27-31); Mean Corpuscular Volume 100 fL (80-94); Nucleated Red Blood Cells % 0.1; Platelet Count 261 10^3/uL (150-450); Red Blood Count 2.39 10^6 /uL (4.18-5.48); Red Cell Distribution Width 19 % (10-15); White Blood Count 4.3 10^3/uL (3.5-10.8)
[2020-09-26 06:54] LABS: BUN/Creatinine Ratio 9.8 (8-20); Calcium 8.5 mg/dL (8.6-10.3); EGFR African American 100.9 (>60); EGFR Non-African American 83.4 (>60); Globulin 3.1 g/dL (2-4); Magnesium 1.8 mg/dL (1.9-2.7); Phosphorus 3.4 mg/dL (2.5-5.0); Potassium 3.7 mmol/L (3.5-5.0); Total Bilirubin 0.6 mg/dL (0.2-1.0); Total Protein 6.1 g/dL (6.4-8.9)
[2020-09-26] MEDS ORDERED: Magnesium Sulfate 2 gm BAG 2 GM/50 ML BAG IVPB ONE (07:42)
[2020-09-26] MEDS: Pantoprazole VIAL 40 MG VIAL IV SCH ×2 (08:57→21:02)
[2020-09-26] MEDS: Multivitamins/Minerals TAB PO SCH (08:58)
[2020-09-26] MEDS: Nystatin TOP POWDER 15 GM BTL TOPICAL SCH ×2 (08:58→21:04)
[2020-09-26] MEDS: levETIRAcetam 1000MG IVPREMIX 1,000 MG/100 ML BAG IVPB SCH ×2 (08:58→21:02)
[2020-09-26] MEDS ORDERED: KCL 20 MEQ/100 ML IVPREMIX 20 MEQ/100 ML BAG IV ONE (10:20)
[2020-09-26] MEDS: Thiamine IV 100 MG in NS 0.9% 50 ML Q24H IV SCH (10:49)
[2020-09-27] MEDS: Multivitamins/Minerals TAB PO SCH (08:10)
[2020-09-27] MEDS: Pantoprazole VIAL 40 MG VIAL IV SCH ×2 (08:10→20:02)
[2020-09-27] MEDS: levETIRAcetam 1000MG IVPREMIX 1,000 MG/100 ML BAG IVPB SCH ×2 (08:11→20:02)
[2020-09-27] MEDS ORDERED: Potassium Chlor 20 meq TAB.ER PO SCH (09:00)
[2020-09-27] MEDS: Nystatin TOP POWDER 15 GM BTL TOPICAL SCH ×2 (09:45→20:02)
[2020-09-27] MEDS: Thiamine IV 100 MG in NS 0.9% 50 ML Q24H IV SCH (09:46)
[2020-09-27 15:39] LABS: BUN/Creatinine Ratio 8.2 (8-20); EGFR African American 93.8 (>60); EGFR Non-African American 77.5 (>60); Magnesium 1.8 mg/dL (1.9-2.7); Potassium 3.9 mmol/L (3.5-5.0)
[2020-09-27] MEDS ORDERED: Magnesium Sulfate 2 gm BAG 2 GM/50 ML BAG IVPB ONE (16:11)
[2020-09-28 05:33] LABS: BUN/Creatinine Ratio 7.2 (8-20); Calcium 8.8 mg/dL (8.6-10.3); EGFR African American 94.9 (>60); EGFR Non-African American 78.4 (>60); Potassium 3.8 mmol/L (3.5-5.0)
[2020-09-28] MEDS: levETIRAcetam 1000MG IVPREMIX 1,000 MG/100 ML BAG IVPB SCH ×2 (09:08→20:30)
[2020-09-28] MEDS: Nystatin TOP POWDER 15 GM BTL TOPICAL SCH ×2 (09:09→20:31)
[2020-09-28] MEDS: Multivitamins/Minerals TAB PO SCH (09:11)
[2020-09-28] MEDS: Pantoprazole VIAL 40 MG VIAL IV SCH ×2 (09:11→20:30)
[2020-09-28] MEDS: Thiamine IV 100 MG in NS 0.9% 50 ML Q24H IV SCH (10:14)
[2020-09-29] MEDS: Multivitamins/Minerals TAB PO SCH (09:21)
[2020-09-29] MEDS: Pantoprazole VIAL 40 MG VIAL IV SCH ×2 (09:21→20:07)
[2020-09-29] MEDS: levETIRAcetam 1000MG IVPREMIX 1,000 MG/100 ML BAG IVPB SCH ×2 (09:22→20:07)
[2020-09-29] MEDS: Nystatin TOP POWDER 15 GM BTL TOPICAL SCH ×2 (09:22→20:07)
[2020-09-29] MEDS: Thiamine IV 100 MG in NS 0.9% 50 ML Q24H IV SCH (09:52)
[2020-09-30] MEDS: Pantoprazole VIAL 40 MG VIAL IV SCH (08:31)
[2020-09-30] MEDS: levETIRAcetam 1000MG IVPREMIX 1,000 MG/100 ML BAG IVPB SCH ×2 (08:33→19:32)
[2020-09-30] MEDS: Multivitamins/Minerals TAB PO SCH (08:39)
[2020-09-30] MEDS: Thiamine IV 100 MG in NS 0.9% 50 ML Q24H IV SCH (10:31)
[2020-09-30] MEDS: Nystatin TOP POWDER 15 GM BTL TOPICAL SCH ×2 (10:33→19:38)
[2020-10-01] MEDS: levETIRAcetam 1000MG IVPREMIX 1,000 MG/100 ML BAG IVPB SCH ×2 (07:46→20:11)
[2020-10-01] MEDS: Multivitamins/Minerals TAB PO SCH (07:46)
[2020-10-01] MEDS: Nystatin TOP POWDER 15 GM BTL TOPICAL SCH ×2 (07:49→23:41)
[2020-10-01] MEDS: Thiamine IV 100 MG in NS 0.9% 50 ML Q24H IV SCH (09:07)
[2020-10-02] MEDS: levETIRAcetam 1000MG IVPREMIX 1,000 MG/100 ML BAG IVPB SCH ×2 (08:30→19:45)
[2020-10-02] MEDS: Multivitamins/Minerals TAB PO SCH (08:30)
[2020-10-02] MEDS: Nystatin TOP POWDER 15 GM BTL TOPICAL SCH ×2 (08:31→19:49)
[2020-10-02] MEDS: Thiamine IV 100 MG in NS 0.9% 50 ML Q24H IV SCH (08:55)
[2020-10-03] MEDS: Multivitamins/Minerals TAB PO SCH (07:45)
[2020-10-03] MEDS: Nystatin TOP POWDER 15 GM BTL TOPICAL SCH (07:45)
[2020-10-03] MEDS: levETIRAcetam 1000MG IVPREMIX 1,000 MG/100 ML BAG IVPB SCH (07:45)
[2020-10-03] MEDS: Thiamine IV 100 MG in NS 0.9% 50 ML Q24H IV SCH (08:48)
[2020-10-03] MEDS ORDERED: Lorazepam PYXIS KEY ONE (09:55)
[2020-10-03 13:55] VITALS: BP 114/49
== END 2020-10-03 15:40 | disposition home or self-care (01) | DRG 241 ==
LOC: ED 23:14 → ICU 09-16 03:13 → MEDTELE 09-25 16:57
PROVIDERS: ADMIT Internal Medicine; ATTEND Student in an Organized Health Care Education/Training Program